=== PATIENT | female | born 1950 | race Caucasian/White ===

== ENCOUNTER 2016-11-02 11:01 | Emergency (ER) | payer OTHER ==
[~2016-11-02] VITALS: Ht 144.8 cm; Wt 76.2 kg
--- NOTE | ~2016-11-02 | CR72 ---
[facility] A Service of [facility] & [facility] RADIOLOGY TEXT RESULTS PATIENT: ALEKSANDER NI LOCATION: [facility] : 48 UNIT #: [id number] AGE: [address]: Julian Harrington MD SEX: F ORDER DR: [id number] [facility] [address] [place], [place] [address] [id number] E MR#: [id number] Acc #: [id number] NAME: ALEKSANDER NI : 1950 SEX: F STUDY DATE/TIME: 11/02/2016 11:51 UNIT: [facility] ROOM: STUDY DESCRIPTION: CR Chest Single View Portable Attending Physician: Julian Harrington M.D. Ordering Physician: Julian Harrington M.D. Primary Care Physician: Veronica Soria Aprn MEDICAL IMAGING REPORT This report is preliminary unless electronic signature is present EXAM Chest x-ray portable HISTORY Cough, congestion, short of air. History of essential hypertension, prior smoker. Symptoms started 11:00 a.m. COMMENT Single frontal portable view of the chest timed 11:51 on 11/02/2016 compared to 06/06/2012. Heart size is normal. No acute-appearing parenchymal infiltrate, acute congestive failure, pleural effusion or pneumothorax. IMPRESSION No active disease. Dictated by... Radha Nagy M.D. THIS IS AN ELECTRONICALLY VERIFIED REPORT Radha Nagy M.D. at 11/03/2016 4:53 PM TRISTIN/magda TD: 11/03/2016 02:18 JOB #: [id number] MEDICAL IMAGING REPORT Page 1 of 1 COPY
--- NOTE | ~2016-11-02 | EKG ---
PATIENT: ALEKSANDER NI UNIT #: [id number] Ventricular Rate: 73 BPM Atrial Rate: 73 BPM P-R Interval: 124 ms QRS Duration: 96 ms Q-T Interval: 404 ms QTC Calculation(Bezet): 445 ms P [place]: -17 degrees Calculated R [place]: -14 degrees Calculated T [place]: 11 degrees Diagnosis Line: Normal sinus rhythm Diagnosis Line: Minimal voltage criteria for LVH, may be normal Diagnosis Line: variant Diagnosis Line: Borderline ECG Diagnosis Line: When compared with ECG of 15-FEB-2015 19:35, Diagnosis Line: Minimal criteria for Anterior infarct are no Diagnosis Line: longer Present Diagnosis Line: Confirmed by JULIAN CHOE MD ([id number]) on 11/02/2016 Diagnosis Line: 3:16:59 PM INTERPRETING MD: DAIJA PITT
[~2016-11-02 11:01] MED LIST: ALBUTEROL17 G1 IH; ALBUTEROL17 GM INH; ALTOPREV20 MG PO; ARICEPT5 MG PO; CLARITIN10 MG PO; DESYREL100 MG PO; DICLOFENAC PO; DICLOFENAC SODI50 MG PO; DONEPEZIL HCL10 MG PO; DULOXETINE HCL60 MG PO; EFFEXOR PO; EFFEXOR XR75 MG; EFFEXOR XR75 MG PO; FENTANYL PATCH TOP; FENTANYL1 PATCH .1 TD; FLEXERIL PO; FLEXERIL10 MG PO; IBUPROFEN PO; K-DUR20 ME1 DOB; LASIX PO; LASIX20 MG PO; LINZESS145 MCG PO; LOVASTATIN20 M1 PO; LOVASTATIN20 MG PO; MEVACOR20 M1 PO; MOTION SICKNESS25 M4 PO; NAMENDA XR28 MG PO; NEXIUM PO; NORVASC10 MG PO; OXYCODON HCL-AP1 TA1 PO; OXYCONTIN PO; OXYCONTIN20 MG PO; OXYCONTIN30 MG PO; PANTOPRAZOLE SO40 MG PO; PEN-VEE K PO; PERCOCET10 PO; PHENERGAN PO; PLETAL100 MG PO; PLETAL50 MG PO; POTASSIUM CHLO10 MEQ PO; PREDNISONE PO; PYRIDIUM PO; RANEXA500 MG PO; ROXICODONE15 MG PO; TENORMIN50 MG PO; TIZANIDINE HCL2 MG PO; TOPAMAX PO; TOPAMAX200 MG PO; TOPIRAGEN200 MG PO; TOPIRAMATE200 MG PO; TRAZODONE HCL100 MG PO; TRAZODONE PO; VENLAFAXINE HCL75 M1 PO; VOLTAREN50 MG PO; VOLTAREN75 MG PO; ZANAFLEX PO; ZANAFLEX2 M1 PO; ZANAFLEX2 MG PO; [UNRECOGNIZED DRUG - OTHER] PO
[2016-11-02 12:14] LABS: BASOPHIL% 0.5 % (0-2.5); EOSINOPHIL# 0.1 X10e3 (0-0.7); EOSINOPHIL% 1.8 % (0.0-7.0); HEMATOCRIT 36.3 % (35.0-45.0); HEMOGLOBIN 12.2 gm/dL (12.0-16.0); LYMPHOCYTE# 1.3 X10e3 (1.0-3.5); LYMPHOCYTE% 36.7 % (17.0-45.0); MEAN CELL VOLUME 94.5 FL (83-96); MEAN CORPUSCULAR HEMOGLOBIN 31.7 PG (28-34); MEAN CORPUSCULAR HGB CONC 33.5 g/dL (30-36); MEAN PLATELET VOLUME 7.7 FL (6.5-11.5); MONOCYTE# 0.3 X10e3 (0-1.0); MONOCYTE% 7.5 % (3.0-12.0); NEUTROPHIL# 1.9 X10e3 (1.5-7.1); NEUTROPHIL% 53.5 % (40-75); PLATELET COUNT 180 X10e3 (140-420); RED BLOOD COUNT 3.85 X10e (3.90-5.30); RED CELL DISTRIBUTION WIDTH 13.2 % (11.0-15.5); WHITE BLOOD COUNT 3.6 X10e3 (4.0-10.5)
[2016-11-02 12:19] LABS: DIFF IND NO
[2016-11-02 12:32] LABS: POC - CKMB <1.0 ng/mL (0.0-7.9); POC - TROPONIN <0.05 ng/mL (<=0.05)
[2016-11-02 12:48] LABS: ALKALINE PHOSPHATASE 71 U/L (32-92); ALT (SGPT) 8 U/L (10-40); AST (SGOT) 14 U/L (10-42); BILIRUBIN, DIRECT <0.1 mg/dL (0.0-0.2); BILIRUBIN,INDIRECT 0.3 mg/dL (0.0-0.9); BILIRUBIN,TOTAL 0.4 mg/dL (0.2-2.0); BLOOD UREA NITROGEN 10 mg/dL (9-23); BUN/CREATININE RATIO 9.09; CALCIUM SERUM 8.9 mg/dL (8.4-10.2); CARBON DIOXIDE 23 mmol/L (22-31); CHLORIDE 111 mmol/L (100-111); CREATININE SERUM 1.1 mg/dL (0.6-1.4); GLOM FILT RATE Estimated 51.9 mL/min (>60); GLUCOSE FASTING 114 mg/dL (70-110); POTASSIUM 3.5 mmol/L (3.5-5.1); PROTEIN TOTAL SERUM 6.6 g/dL (6.0-8.3); SODIUM 141 mmol/L (135-145)
== END 2016-11-02 13:14 | disposition home or self-care (01) ==
LOC: CED 11:01
PROVIDERS: Emergency Medicine
DX: J20.9 Acute bronchitis, unspecified (principal); E78.5 Hyperlipidemia, unspecified; I10 Essential (primary) hypertension; Z88.2 Allergy status to sulfonamides; Z88.8 Allergy status to other drugs, medicaments and biological substances
CPT/HCPCS: 36415; 71010; 80048; 80076; 82553; 84484; 85025; 87040; 93005; 94640; 99284; J2930